=== PATIENT | female | born 1950 ===

== ENCOUNTER → 2025-01-10 08:29 | Outpatient (CLI) | payer OTHER ==
[2025-01-10 09:46] LABS: BASO % 0.6 % (0.1-1.2); EOS # 0.09 (0.04-0.54); HEMATOCRIT 34.7 % (34.1-44.9); HEMOGLOBIN 11.8 g/dL (11.2-15.7); LYMPH # 2.51 (1.18-3.74); MEAN CORPUSCULAR HEMOGLOBIN 30.2 pg (25.6-32.2); MONO # 0.67 (0.24-0.82); MONO % 7.2 % (4.7-12.5); NEUT # 5.93 (1.56-6.13); PLATELET COUNT 186 K/uL (163-369); RED BLOOD COUNT 3.91 M/uL (3.93-5.22)
[2025-01-10 10:56] LABS: ALBUMIN 3.6 gm/dL (3.4-5.0); BILIRUBIN TOTAL 0.34 mg/dL (0.3-1.2); CALCIUM 8.9 mg/dL (8.5-10.1); CREATININE SERUM 0.86 mg/dL (0.55-1.02); GFR 64.86; GLOBULINA 3.9 G/DL (2.4-3.5); POTASSIUM 4.54 mEq/L (3.5-5.1); T4 FREE 0.97 NG/ML (0.76-1.46); TOTAL PROTEIN 7.5 gm/dL (6.4-8.2); TSH 1.33 uIU/mL (0.358-3.74)
[2025-01-10 14:59] LABS: FOLIC ACID > 20.00 ng/ml (4.78-20)
[2025-01-10 18:58] LABS: % SATURACION 19.3 % (15-50); FERRITIN 279.1 NG/ML (8-252)
[2025-01-12 05:07] LABS: ANTI THYROID PEROXIDASE < 9 IU/mL (0-34)
[2025-01-12 13:08] LABS: hgb a 97.5 % (96.4-98.8); hgb a2 2.5 % (1.8-3.2); hgb f 0 % (0.0-2.0); hgb s 0 % (0.0)
[2025-01-12 15:08] LABS: ERYTHROPOIETIN 9.9 mIU/mL (2.6-18.5)
== END | disposition home or self-care (01) ==
LOC: LAB 08:29
PROVIDERS: ATTEND Internal Medicine Hematology & Oncology
DX: D51.3 Other dietary vitamin B12 deficiency anemia (principal); I10 Essential (primary) hypertension; E11.9 Type 2 diabetes mellitus without complications; E78.2 Mixed hyperlipidemia; R79.9 Abnormal finding of blood chemistry, unspecified; D50.8 Other iron deficiency anemias; R74.02 Elevation of levels of lactic acid dehydrogenase [LDH]; K76.89 Other specified diseases of liver; D55.0 Anemia due to glucose-6-phosphate dehydrogenase [G6PD] deficiency; D51.1 Vitamin B12 deficiency anemia due to selective vitamin B12 malabsorption with proteinuria; E03.8 Other specified hypothyroidism; E06.3 Autoimmune thyroiditis

== ENCOUNTER 2025-01-10 09:54 | Outpatient (CLI) | payer OTHER | END 2025-01-10 09:58 | disposition home or self-care (01) | LOC: SONOGRAMA 09:54 | PROVIDERS: ATTEND Internal Medicine Hematology & Oncology | DX: D51.3 Other dietary vitamin B12 deficiency anemia (principal); I10 Essential (primary) hypertension; E11.9 Type 2 diabetes mellitus without complications; E78.2 Mixed hyperlipidemia ==

== ENCOUNTER 2025-02-27 10:46 | Outpatient (CLI) | payer OTHER | END 2025-02-27 10:50 | disposition home or self-care (01) | LOC: SONOGRAMA 10:46 | PROVIDERS: ATTEND Pathology Anatomic Pathology | DX: D34 Benign neoplasm of thyroid gland (principal); E07.89 Other specified disorders of thyroid; E04.9 Nontoxic goiter, unspecified ==

== ENCOUNTER 2025-06-12 07:50 | Outpatient (CLI) | payer OTHER | END 2025-06-12 07:52 | disposition home or self-care (01) | LOC: TOM 07:50 | PROVIDERS: ATTEND Internal Medicine Hematology & Oncology | DX: R19.5 Other fecal abnormalities (principal); C18.9 Malignant neoplasm of colon, unspecified; E11.9 Type 2 diabetes mellitus without complications; E78.2 Mixed hyperlipidemia; E04.9 Nontoxic goiter, unspecified; Z12.11 Encounter for screening for malignant neoplasm of colon; D51.3 Other dietary vitamin B12 deficiency anemia; I10 Essential (primary) hypertension ==